=== PATIENT | male | born 1975 | race Caucasian/White ===

== ENCOUNTER 2016-10-25 00:58 | Emergency (ER) | payer SELFPAY ==
[2016-10-25] MEDS ORDERED: HYDROcodone-APAP 5 MG -325 MG TABLET PO SCH (01:15)
[2016-10-25] MEDS ORDERED: AMOXICILLIN 500 MG CAPSULE PO SCH (01:15)
[2016-10-25 01:17] VITALS: RESP 18; TEMP 96.7
--- NOTE | 2016-10-25 02:38 | PDOC ---
Sore Throat/Dental Pain HPI - General Chief Complaint: Nasal/Mouth Problem /Injury Stated Complaint: DENTAL PAIN Date Seen by Provider: 10/25/16 Time Seen by Provider: 01:00 Source: POSITIVE: Patient Exam Limitations: POSITIVE: No limitations Nurse's Notes Reviewed & Considered: Yes - History of Present Illness Initial Comments: The patient is a 41-year-old male who presents to the emergency department with left lower molar pain. He states that several days ago he was chewing some gum when he pulled a portion of his failing out of his left lower molar. The past couple of days he has been having increased pain in the area of the tooth. Initially this pain was controlled with ibuprofen however over the last 24 hours the pain has intensified and is no longer responding to ibuprofen. He denies fevers or chills, difficulty swallowing or any other associated complaints. - Patient Home Medications Home Medications: Home Medications Amoxicillin 500 mg PO Q8H #21 cap 10/25/16 HYDROcodone/APAP 5/325 Tab [Leon 5/325 Tab] 1 each PO Q6H PRN #10 tablet - Patient Allergies Allergies/Adverse Reactions: Allergies Allergy/AdvReac Type Severity Reaction Status Date / Time No Known Allergies Allergy Verified 10/25/16 01:04 Past Medical History - heen HEENT History: Denies History Cardiovascular History: Denies History Respiratory History: Denies History Gastrointestinal History: Denies History Genitourinary History: Denies History Endocrine History: Denies History Musculoskeletal History: Denies History Additional Musculoskeletal History: RIGHT SHOULDER PAIN Neurological History: Denies History Blood Disorders: Denies History Psychiatric History: Anxiety Disorders History of Sexually Transmitted Diseases: No Male Reproductive History: Denies History Cancer History: Denies History In Past Year Been Physically Harmed or Verbally Threatened: No History of MDRO: No History of Other Communicable Diseases: No Tobacco Use: Current Every Day Smoker Alcohol Use: Occasionally Type of alcohol normally used: Beer Substance Use Type: None Previous Surgical History: Yes Type / Date of Surgery: LEFT KNEE. RIGHT SHOULDER Significant Family History: No pertinent family hx Past Medical History Reviewed: Reviewed - No Changes ROS - Limitations ROS Limitations: No Limitations Constitution: DENIES: Chills, Fever Cardiovascular: REPORTS: Denies Cardiac Symptoms Respiratory: REPORTS: Denies Resp Symptoms Sore Throat/Dental Pain Exam - General Appearance General Appearance: REPORTS: Alert, Cooperative, No Acute Distress - HEENT Head / Face: POSITIVE: No Facial Swelling Eyes: POSITIVE: Inspection Normal Ears: POSITIVE: Ears Normal Inspection Nose: POSITIVE: Inspection Normal Oropharynx: POSITIVE: Airway Intact, Voice Normal, Moist Mucous Membranes Neck: POSITIVE: Supple. NEGATIVE: Lymphadenopathy Dental: POSITIVE: Other (He has a left lower molar with a portion of a filling that has come out, there is some surrounding erythema and swelling to the gum line around the tooth) - Respiratory Respiratory: REPORTS: No Respiratory Distress, Breath Sounds Normal - Cardiovascular Cardiovascular: REPORTS: Regular Rate and Rhythm, Heart Sounds Normal Sore Throat/Dental Progress - Patient's Progress MDM / ED Course: He was started on amoxicillin 500 mg 3 times a day for 7 days. In addition he will continue ibuprofen 600 mg every 6 hours as needed for pain. He was also given Leon 5/325 which he can take one every 6 hours as needed for pain. He is advised return to the emergency room if increased pain or swelling, difficulty swallowing, any worsening or change in symptoms. He is advised to follow-up with a dentist as soon as possible. - Consult Counseled: POSITIVE: Patient, RE: DX, RE: Need for F/U Patient Care Time - Estimated PCT Patient Care Time (In Minutes): 10 Vital Signs - Recent Vital Signs Vital Signs: Vital Signs (Last 8 hours) Temp Pulse Resp BP Pulse Ox 10/25/16 00:58 96.7 F L 89 18 143/104 98 - VS Reviewed Vital Signs Reviewed: Yes Discharge Clinical Impression: Dental abscess Discharge Disposition: Discharged to Home Condition: Stable Prescriptions / Orders: Amoxicillin 500 mg PO Q8H #21 cap HYDROcodone/APAP 5/325 Tab [Leon 5/325 Tab] 1 each PO Q6H PRN #10 tablet PRN Reason: Pain Patient Instructions Given at Discharge: Dental Abscess (ED) Additional Instructions: Start amoxicillin 500 mg 3 times a day for 1 week. Continue ibuprofen 600 mg every 6 hours as needed for pain. Leon 5/325 one every 6 hours as needed for pain. Return to the emergency room if increased pain or swelling, difficulty swallowing, any worsening or change in symptoms. Recommend dental follow-up as soon as possible. Follow Up With: RAFAELA RICHARDSON [Primary Care Provider] -
== END 2016-10-25 01:33 | disposition home or self-care (01) ==
LOC: ER 00:58
DX: K04.7 Periapical abscess without sinus (principal); K08.89 Other specified disorders of teeth and supporting structures
CPT/HCPCS: 99282

== ENCOUNTER 2016-10-25 22:59 | Emergency (ER) | payer SELFPAY ==
[2016-10-25] MEDS ORDERED: LIDOCAINE HCL 1%/EPI 1:100,000 - 20 ML VIAL ONE (23:06)
--- NOTE | 2016-10-25 23:19 | PDOC ---
Sore Throat/Dental Pain HPI - General Chief Complaint: Nasal/Mouth Problem /Injury Stated Complaint: DENTAL PAIN Date Seen by Provider: 10/25/16 Time Seen by Provider: 23:05 Source: POSITIVE: Patient Exam Limitations: POSITIVE: No limitations Nurse's Notes Reviewed & Considered: Yes - History of Present Illness Initial Comments: Patient comes in tonight chief complaint of dental pain. Patient was seen last night here in the emergency room for the same. He was discharged with prescription for antibiotics, prescription for [place] 5/325's, and instructions to follow-up with dental. He states that the [place] have not been enough to take care of his pain and that nothing is improving it. He did not follow-up with a dentist. Location: Dental (Lower) Timing: REPORTS: Constant Duration: Unknown Severity: Severe Quality: REPORTS: "Pain", Throbbing Context: REPORTS: Other (Carious molar) Modifying Factors: improves with: Cold Associated Symptoms: REPORTS: Toothache Similar Symptoms Previously: Yes Recently seen/treated/hospitalized: Yes Any Prior Injuries Related to Current Complaint?: No - Patient Home Medications Home Medications: Home Medications Amoxicillin 500 mg PO Q8H #21 cap 10/25/16 HYDROcodone/APAP 5/325 Tab [[place] 5/325 Tab] 1 each PO Q6H PRN #10 tablet - Patient Allergies Allergies/Adverse Reactions: Allergies Allergy/AdvReac Type Severity Reaction Status Date / Time No Known Allergies Allergy Verified 10/25/16 23:11 Past Medical History - heen HEENT History: Denies History Cardiovascular History: Denies History Respiratory History: Denies History Gastrointestinal History: Denies History Genitourinary History: Denies History Endocrine History: Denies History Musculoskeletal History: Denies History Prosthesis or Implant: Yes (LEFT KNEE) Additional Musculoskeletal History: RIGHT SHOULDER PAIN Neurological History: Denies History Blood Disorders: Denies History Psychiatric History: Anxiety Disorders History of Sexually Transmitted Diseases: No Cancer History: Denies History History of MDRO: No History of Other Communicable Diseases: No Alcohol Use: Occasionally Substance Use Type: None Previous Surgical History: Yes Type / Date of Surgery: LEFT KNEE. RIGHT SHOULDER Significant Family History: No pertinent family hx ROS - Limitations ROS Limitations: No Limitations Constitution: REPORTS: Denies Symptoms Cardiovascular: REPORTS: Denies Cardiac Symptoms Respiratory: REPORTS: Denies Resp Symptoms Neurological: REPORTS: Denies Neuro Symptoms Gastrointestinal: REPORTS: Denies GI Symptoms Endocrine: REPORTS: Denies Symptoms Musculoskeletal: REPORTS: Denies MS Symptoms Genitourinary: REPORTS: Denies Symptoms Eyes: REPORTS: Denies Symptoms ENT: REPORTS: Dental Pain Skin: REPORTS: Denies Skin Symptoms Lympathic: REPORTS: Denies Lympathic Symptoms Immunologic: POSITIVE: Denies Symptoms Psychiatric: POSITIVE: Denies Psych Symptoms Sore Throat/Dental Pain Exam - General Appearance General Appearance: REPORTS: Alert, Cooperative, No Evidence of Trauma, Moderate Distress - HEENT Head / Face: POSITIVE: Atraumatic, Normal Inspection, No Facial Swelling Eyes: POSITIVE: Inspection Normal, PERRL, EOM's Intact, Eyelids Uninjured, Conjunctivae Uninjured, No Nystagmus, No Globe Trauma, Sclera Normal, Normal Corneal Inspection Ears: POSITIVE: Ears Normal Inspection, Auricle Normal Nose: POSITIVE: Inspection Normal, No Apparent Trauma, Nares Normal, No CSF Leak Oropharynx: POSITIVE: External Inspection Nml, Pharynx Inspect. Nml, Airway Intact, Voice Normal, Moist Mucous Membranes, No Oral Injury, Lips Normal, Gums Normal, No Drooling, No Thrush, Normal Gag Reflex Neck: POSITIVE: Supple, Normal Inspection, Non Tender Dental: POSITIVE: Dental Caries, Dental Tenderness Procedure - Additional Procedures Additional Procedures: Other (Dental block. Left inferior alveolar nerve block utilizing 1% lidocaine with epinephrine. After obtaining informed verbal consent patient was injected with 1% lidocaine with epinephrine into the inferior alveolar nerve on the left. Total of 4 mL were utilized which resulted in excellent anesthesia. Patient tolerated this well.) Sore Throat/Dental Progress - Patient's Progress Status: POSITIVE: Improved - Consult Counseled: POSITIVE: Patient, Family, RE: DX, RE: Need for F/U (Follow-up with dentist) Patient Care Time - Estimated PCT Patient Care Time (In Minutes): 10 Vital Signs - VS Reviewed Vital Signs Reviewed: Yes Discharge Clinical Impression: Dental caries Discharge Disposition: Discharged to Home Condition: Stable Patient Instructions Given at Discharge: Toothache (ED)
[2016-10-25 23:22] VITALS: RESP 18; TEMP 97
[2016-10-25] MEDS ORDERED: LIDOCAINE HCL 1%/EPI 1:100,000 - 20 ML VIAL SUBCUT ONE (23:23)
== END 2016-10-25 23:29 | disposition home or self-care (01) ==
LOC: ER 22:59
DX: K02.9 Dental caries, unspecified (principal); K08.89 Other specified disorders of teeth and supporting structures
CPT/HCPCS: 99282